=== PATIENT | female | born 1985 | race Caucasian/White ===

== ENCOUNTER → 2019-08-29 14:03 | Outpatient (CLI) | payer OTHER, SELFPAY ==
--- NOTE | 2019-08-29 | DI.US.S_ITS ---
PROCEDURE: US OB >= 14 WEEKS FETUS INDICATIONS: 20 WEEK ANATOMICAL SURVEY OUTSIDE/PRIOR DATING DATA: Last menstrual period (LMP): 04/19/2019. LMP-based estimated date of delivery (GEMA): 01/24/2020. First dating scan (date and location): 08/29/2019. Estimated date of delivery (GEMA) from first dating scan: 01/18/2020. TECHNIQUE: Real-time scanning was performed of the fetus, with image documentation and biometric measurements. COMPARISON: None. FINDINGS: General: A single living intrauterine gestation is present. Presentation: Vertex. Placenta: Placental position is posterior fundal, without previa. Amniotic fluid index: 15.8 cm, normal range is 5-24 cm. heart rate: 132 beats per minute. Maternal cervical canal: 3 cm long. Normal lower limit is 2.5 cm biometrics: Biparietal diameter: 4.7 cm. 20 weeks 2/7 days. Head circumference: 17 cm. 19 weeks 4/7 days. Abdominal circumference: 14 cm. 19 weeks 3/7 days. Femur length: 3 cm. 19 weeks 2/7 days. Estimated gestational age from initial scan: not applicable. Composite gestational age from present scan: 19 weeks 5/7 days Estimated weight and percentile: 290 grams. 77th percentile. Measurement variability for biometric dating: +/- 7 days from 14 weeks to 15 weeks 6 days gestation, +/- 10 days from 16 weeks to 21 weeks 6 days gestation, +/- 2 weeks from 22 weeks to 27 weeks 6 days gestation, +/- 3 weeks for 28 weeks gestation or later. weight reference: 4500 g or EFW >90/95% is considered macrosomia or large for gestational age. EFW <10% is small for gestational age. EFW 5% or less is considered intra-uterine growth restriction. Anatomic survey: Neuro: Ventricles are non-dilated at less than 10 mm. Cisterna magna is normal at 3-11 mm. Cerebellum is normal in size and morphology. Nuchal skin fold: Normal at less than 6 mm between 14-21 weeks gestational age. Face: Nose and lips, facial profile are normal. Spine: No evidence for spina bifida. Heart: 4-chambered heart is present, with normal ventricular outflow tracts. Diaphragm: Diaphragm is intact. Stomach: Left-sided stomach is present. Kidneys: No hydronephrosis. Normal is less than 5 mm in 2nd trimester, less than 7 mm in 3rd trimester. Cord: 3-vessel cord has orthotopic insertion. Bladder: Normal in size. Extremities: All 4 extremities identified. IMPRESSION: 1. Dial living intrauterine at 19 weeks 5/7 days based on today's ultrasound. EFW in 77th percentile. 2. Normal placenta and amniotic fluid. 3. Normal and complete anatomic survey. Dictated by: Jorge Perez M.D. on 08/29/2019 at 15:25 Approved by: Jorge Perez M.D. on 08/29/2019 at 15:29
== END ==
PROVIDERS: Visit Provider Midwife
DX: Z36.89 Encounter for other specified antenatal screening (principal); Z3A.19 19 weeks gestation of pregnancy
CPT/HCPCS: 76811